=== PATIENT | male | born 2000 | race African-American/Black ===

== ENCOUNTER 2018-01-03 23:30 | Emergency (ER) | payer MEDICAID ==
[~2018-01-03] VITALS: Ht 175.3 cm; Wt 67.0 kg
[2018-01-04] MEDS ORDERED: LIDOcaine 1.5% w/epinephrine 1:200,000 5ml ampul IJ ONE (01:35)
[2018-01-04] MEDS ORDERED: HYDROcodone/acetaminophen 10/325mg tab PO ONE (01:35)
[2018-01-04] MEDS ORDERED: naproxen 500mg tablet PO ONE (01:35)
[2018-01-04] MEDS ORDERED: CEPH250T PO (02:19)
[2018-01-04] MEDS ORDERED: cephalexin 500mg capsule PO ONE (02:20)
[2018-01-04 02:58] VITALS: BP 128/64
== END 2018-01-04 03:01 | disposition home or self-care (01) ==
LOC: ER 23:32
DX: S91.322A Laceration with foreign body, left foot, initial encounter (principal); Z79.2 Long term (current) use of antibiotics; W45.8XXA Other foreign body or object entering through skin, initial encounter; Y92.89 Other specified places as the place of occurrence of the external cause; Y93.89 Activity, other specified; Y99.8 Other external cause status
CPT/HCPCS: 12042; 73630; 99284; J3490; 12032